=== PATIENT | female | born 1985 | race American Indian/Alaskan Native ===

== ENCOUNTER 2017-11-17 13:01 | Outpatient (CLI) | payer MEDICAID ==
[2017-11-17] MEDS ORDERED: LACTATED RINGERS 500 ML IV ONE (13:53)
[2017-11-17] MEDS ORDERED: CELESTONE SOLUSPAN IM ONE (15:00)
== END 2017-11-17 14:15 | disposition home or self-care (01) ==
LOC: EDBD 13:01 → TRG 13:01
PROVIDERS: ATTEND Obstetrics & Gynecology
DX: O47.02 False labor before 37 completed weeks of gestation, second trimester (principal); Z3A.27 27 weeks gestation of pregnancy
CPT/HCPCS: 96372; J0702

== ENCOUNTER 2017-11-18 14:34 | Outpatient (CLI) | payer MEDICAID ==
[2017-11-18] MEDS ORDERED: CELESTONE SOLUSPAN IM NR (14:36)
== END 2017-11-18 14:58 | disposition home or self-care (01) ==
LOC: TRG 14:34
PROVIDERS: ATTEND Obstetrics & Gynecology
DX: O99.322 Drug use complicating pregnancy, second trimester (principal); F55.3 Abuse of steroids or hormones; Z3A.26 26 weeks gestation of pregnancy
CPT/HCPCS: 96372; J0702

== ENCOUNTER 2019-04-09 21:13 | Emergency (ER) | payer MEDICAID, OTHER | END 2019-04-10 02:08 | disposition home or self-care (01) | LOC: ED 21:13 | CPT/HCPCS: 72100 ==